=== PATIENT | female | born 1985 | race Caucasian/White ===

== ENCOUNTER 2016-09-09 19:12 | Emergency (ER) | payer SELFPAY ==
[2016-09-09 19:20] VITALS: BP 127/60; PULSE 109; RESP 20; TEMP 97.9
--- NOTE | 2016-09-09 19:35 | ED ---
General Adult HPI - General Chief complaint: Fall Stated complaint: Fall/ 34 weeks fell on stomach/Ankle Injur Time Seen by Provider: 09/09/16 19:25 Source: patient, RN notes reviewed Mode of arrival: wheelchair Limitations: no limitations - History of Present Illness Initial comments: Patient 31-year-old female who is approximately 34 weeks by ultrasound , who presents emergency room today with a chief complaint of a fall that occurred just prior to arrival. Patient does admit that she tripped in the driveway falling for onto her abdomen. She states she rolled her right ankle. She does admit to pain to the right ankle. Patient states she is also concerned about the baby. She states that she did fall onto the abdomen. Patient does admit some mild tenderness but she states this is pain that she has been having with the . She denies any vaginal bleeding or discharge. She denies any other injuries or complaints currently. Patient denies any recent fever, chills, shortness of breath, chest pain, back pain, nausea or vomiting, numbness or tingling, dysuria or hematuria, constipation or diarrhea, headaches or visual changes, or any other complaints. - Related Data Home Medications Medication Instructions Recorded Confirmed Cetirizine HCl [Zyrtec] 10 mg PO DAILY PRN 10/19/14 10/31/15 Acetaminophen-Codeine 300-30mg 1 tab PO Q4H PRN 10/27/15 10/31/15 [Tylenol #3] Ibuprofen [Motrin] 200 - 400 mg PO Q6HR PRN 10/27/15 10/27/15 Previous Rx's Medication Instructions Recorded Docusate [Colace] 100 mg PO BID #30 capsule 10/31/15 Hydrocodone/Acetaminophen [Big Bar 1 each PO Q6HR PRN #30 tab 10/31/15 5-325] Ibuprofen [Motrin] 800 mg PO TID PRN #21 tab 01/22/16 Allergies Allergy/AdvReac Type Severity Reaction Status Date / Time Penicillins Allergy Mild Rash/Hives Verified 09/09/16 19:19 Review of Systems ROS Statement: Those systems with pertinent positive or pertinent negative responses have been documented in the HPI. ROS Other: All systems not noted in ROS Statement are negative. Past Medical History Past Medical History: Chest Pain / Angina, GERD/Reflux, Thyroid Disorder Additional Past Medical History / Comment(s): migraines, occ chest pain "from stress", kidney stones, gallstones, History of Any Multi-Drug Resistant Organisms: None Reported Past Surgical History: Section, Cholecystectomy Additional Past Surgical History / Comment(s): oral surgery Past Anesthesia/Blood Transfusion Reactions: Motion Sickness, Postoperative Nausea & Vomiting (PONV) Additional Past Anesthesia/Blood Transfusion Reaction / Comment(s): post up dizziness Past Psychological History: No Psychological Hx Reported Smoking Status: Never smoker Past Alcohol Use History: None Reported Past Drug Use History: None Reported - Past Family History Mother Family Medical History: Deep Vein Thrombosis (DVT) Father Family Medical History: Hypertension General Exam - General Exam Comments Initial Comments: General: The patient is awake and alert, in no distress, and does not appear acutely ill. Eye: Pupils are equal, round and reactive to light, extra-ocular movements are intact. No nystagmus. There is normal conjunctiva bilaterally. No signs of icterus. Ears, nose, mouth and throat: There are moist mucous membranes and no oral lesions. Neck: The neck is supple, there is no tenderness or JVD. Cardiovascular: There is a regular rate and rhythm. No murmur, rub or gallop is appreciated. Respiratory: Lungs are clear to auscultation, respirations are non-labored, breath sounds are equal. No wheezes, stridor, rales, or rhonchi. Gastrointestinal: Soft on palpation, without masses or organomegaly noted. There is no rebound or guarding present. No CVA tenderness. Bowel sounds are unremarkable. Musculoskeletal: Normal appearance of the right ankle obvious deformity. Shows good range of motion with plantar and dorsiflexion. Sensations intact with pulses equal bilaterally 2+. Patient does have mild tenderness over both medial and lateral malleolus. No tenderness to the right knee or down into the metatarsals or digits of the right foot. Neurological: A&O x 3. CN II-XII intact, There are no obvious motor or sensory deficits. Coordination appears grossly intact. Speech is normal. Skin: Skin is warm and dry and no rashes or lesions are noted. Psychiatric: Cooperative, appropriate mood & affect, normal judgment. Limitations: no limitations Course Vital Signs 09/09/16 19:15 Temperature 97.9 F Pulse Rate 109 H Respiratory 20 Rate Blood Pressure 127/60 O2 Sat by Pulse 97 Oximetry Medical Decision Making - Medical Decision Making Case discussed in detail with attending physician Dr. Castillo. Patient will be sent to mother-baby to have baby checked is felt to be most important thing as patient is greater than 34 weeks . Was discussed about x-ray. Patient states she is concerned about the baby. OB nurse at bedside states that she is willing to take patient up to mother-baby for NST. Disposition Clinical Impression: Fall Disposition: HOME SELF-CARE Time of Disposition: 19:34 ( Sent to mother baby by nursing staff)
--- NOTE | 2016-09-09 20:24 | XR ---
EXAMINATION TYPE: XR ankle complete RT DATE OF EXAM: 09/09/2016 8:18 PM CLINICAL HISTORY: Right ankle pain and swelling after twisting injury. TECHNIQUE: Frontal, lateral and oblique images of the right ankle are obtained. COMPARISON: Right ankle x-ray January 22, 2016. FINDINGS: There is persistent tiny ill-defined ossific or calcific fragment from the lateral malleol us. Possible old avulsion type fracture. There is no new acute fracture/dislocation evident in the ri ght ankle. The ankle mortise appears within normal limits. Mild diffuse subcutaneous edema is presen t. Slightly more prominent soft tissue swelling over medial malleolus is seen on current study. IMPRESSION: There is no acute fracture or dislocation in the right ankle.
== END 2016-09-09 20:45 | disposition home or self-care (01) ==
LOC: EC 19:12
DX: O9A.213 Injury, poisoning and certain other consequences of external causes complicating pregnancy, third trimester (principal); M25.571 Pain in right ankle and joints of right foot; R10.819 Abdominal tenderness, unspecified site; W01.0XXA Fall on same level from slipping, tripping and stumbling without subsequent striking against object, initial encounter; Z3A.34 34 weeks gestation of pregnancy; Z88.0 Allergy status to penicillin
CPT/HCPCS: 99284

== ENCOUNTER 2016-09-09 19:35 | Outpatient (CLI) | payer OTHER | END 2016-09-09 23:02 | disposition home or self-care (01) | LOC: FBPOP 19:35 | PROVIDERS: ATTEND Obstetrics & Gynecology | DX: O99.89 Other specified diseases and conditions complicating pregnancy, childbirth and the puerperium (principal); M25.571 Pain in right ankle and joints of right foot; Z3A.34 34 weeks gestation of pregnancy | CPT/HCPCS: 59025; 99213 ==

== ENCOUNTER 2016-10-12 07:47 | Inpatient (IN) | payer OTHER ==
[2016-10-05 15:39] VITALS: BMI 42.3
--- NOTE | 2016-10-12 11:16 | P.HPOB ---
History of Present Illness H&P Date: 10/12/16 Chief Complaint: 39 and one sevenths weeks intrauterine , previous section The patient is a 31-year-old 3 para 2001 who presents the hospital at 39 and one sevenths weeks as established by last menstrual period and confirmed by 18 week ultrasound. She presents for repeat low transverse section with intraoperative bilateral tubal occlusion using Filshie clips. She has undergone 2 previous sections and agreed to the procedure as above. Should she decide a consent for tubal ligation in the office and understands the permanent nature of the procedure as well as its failure rate and risk for ectopic . Her has been otherwise uncomplicated and group B strep status is negative. Obstetrical history 3 para 2 scissors or 2 with 2 term sections. EDC of 10/18/2016 was established by last menstrual period and confirmed by an 18 week ultrasound. Laboratory workup done traits of blood type of A+ with a negative antibody screen. Rubella status is immune. All other laboratory workup was within normal limits and one-hour Glucola was normal as well. Group B strep status is negative. Gynecologic history is unremarkable with no history of any infections to include STDs. Review of Systems Review of systems is confined to history of present illness. Past Medical History Past Medical History: Asthma Additional Past Medical History / Comment(s): Hx low blood pressure, kidney stones. History of Any Multi-Drug Resistant Organisms: None Reported Past Surgical History: Section, Cholecystectomy Additional Past Surgical History / Comment(s): section X2, oral surgery. Past Anesthesia/Blood Transfusion Reactions: Motion Sickness, Postoperative Nausea & Vomiting (PONV) Additional Past Anesthesia/Blood Transfusion Reaction / Comment(s): Post up dizziness. Past Psychological History: No Psychological Hx Reported Smoking Status: Never smoker Past Alcohol Use History: None Reported Past Drug Use History: None Reported - Past Family History Mother Family Medical History: Deep Vein Thrombosis (DVT) Father Family Medical History: Hypertension Medications and Allergies Home Medications Medication Instructions Recorded Confirmed Type Cetirizine HCl [Zyrtec] 10 mg PO DAILY PRN 10/19/14 10/12/16 History Albuterol Nebulized [Ventolin 2.5 mg INHALATION Q6H PRN 10/05/16 10/12/16 History Nebulized] Pnv with Ca,No.72/Iron/FA 1 each PO DAILY 10/05/16 10/12/16 History [ Plus Tablet] Allergies Allergy/AdvReac Type Severity Reaction Status Date / Time Penicillins Allergy Mild Rash/Hives Verified 10/05/16 15:24 Exam In general, this is a well-developed, well-nourished white female in no acute distress. Her heart has a regular rhythm and rate without murmur. Her lungs are clear to auscultation bilaterally in all beltran. Her abdomen is gravid, nondistended, has normal active bowel sounds, soft, nontender, and without any palpable masses aside from the uterine fundus. Her extremities are without any cyanosis, clubbing, or edema and are nontender to palpation bilaterally. Digital cervical examination is deferred. Assessment and Plan (1) Term Status: Acute (2) Previous section Status: Acute (3) Family planning Status: Acute Plan: The patient is admitted for repeat low transverse section with intraoperative bilateral tubal occlusion using Filshie clips. The risks and complications of the procedures have been thoroughly discussed. As noted above , she understands the permanent nature of tubal ligation as well as its failure rate and risk for ectopic .
[2016-10-12] MEDS ORDERED: CITRIC ACID-SODIUM CITRATE 15 ML CUP PO ONE (11:27)
[2016-10-12] MEDS ORDERED: LACTATED RINGERS 1,000 ML IV ONE (11:27)
[2016-10-12] MEDS ORDERED: LACTATED RINGERS 1,000 ML IV SCH (11:30)
[2016-10-12 11:57] LABS: Basophils % (A) 0 %; CH 28.5; CHCM 32.9; Eosinophils # (A) 0.1 k/uL (0-0.7); Eosinophils % (A) 1 %; HDW 2.73; HGB 11.8 gm/dL (11.4-16.0); Luc # (Auto) 0.19; Luc % (Auto) 2; Lymphocytes # (A) 1.6 k/uL (1.0-4.8); Lymphocytes % (A) 15 %; MCH 28.4 pg (25.0-35.0); MCHC 32.7 g/dL (31.0-37.0); MCV 86.9 fL (80.0-100.0); Mean Platelet Volume 8.6; Monocytes # (A) 0.4 k/uL (0-1.0); Monocytes % (A) 4 %; Neutrophils # (A) 8.2 k/uL (1.3-7.7); Neutrophils % (A) 79 %; RBC 4.14 m/uL (3.80-5.40); WBC 10.5 k/uL (3.8-10.6); WBC (Perox) 10.94
[2016-10-12] MEDS ORDERED: MORPHINE SULFATE (PF) 0.3 MG/0.3 ML SYR ONE (12:16)
[2016-10-12] MEDS ORDERED: OXYTOCIN 10 UNIT/ML 1 ML VIAL IM ONE (12:16)
[2016-10-12] MEDS ORDERED: LACTATED RINGERS 1,000 ML BAG IV ONE (12:16)
[2016-10-12] MEDS ORDERED: KETOROLAC 30 MG/ML 1 ML VIAL ONE (12:16)
[2016-10-12] MEDS ORDERED: diphenhydrAMINE 50 MG/ML 1 ML VIAL ONE (12:16)
[2016-10-12] MEDS ORDERED: ONDANSETRON 4 MG/2 ML VIAL ONE (12:16)
[2016-10-12] MEDS ORDERED: NALBUPHINE 10 MG/ML AMPUL ONE (12:16)
[2016-10-12] MEDS ORDERED: ePHEDrine 50 MG/ML 1 ML AMP ONE (12:16)
[2016-10-12] MEDS ORDERED: ceFAZolin 1,000 MG VIAL ONE (12:16)
[2016-10-12] MEDS ORDERED: MORPHINE SULFATE 4 MG/ML SYRINGE IVP PRN (12:37)
[2016-10-12] MEDS ORDERED: NALOXONE 0.4 MG/ML 1 ML VIAL IV PRN ×2 (12:37→13:04)
[2016-10-12] MEDS ORDERED: diphenhydrAMINE 50 MG/ML 1 ML VIAL IVP PRN ×3 (12:37→13:04)
[2016-10-12] MEDS ORDERED: ONDANSETRON 4 MG/2 ML VIAL IVP PRN ×2 (12:37→13:04)
[2016-10-12] MEDS ORDERED: ZOLPIDEM 5 MG TAB PO PRN (13:04)
[2016-10-12] MEDS ORDERED: METOCLOPRAMIDE 5 MG/ML 2 ML VIAL IVP PRN (13:04)
[2016-10-12] MEDS ORDERED: SIMETHICONE 80 MG CHEWABLE PO PRN (13:04)
[2016-10-12] MEDS ORDERED: LANOLIN CREAM 5 GM TUBE TOPICAL PRN (13:04)
[2016-10-12] MEDS ORDERED: diphenhydrAMINE 50 MG CAP PO PRN (13:04)
[2016-10-12] MEDS ORDERED: Acetaminophen-Codeine 300-30mg TAB PO PRN (13:04)
[2016-10-12] MEDS ORDERED: diphenhydrAMINE 25 MG CAP PO PRN (13:04)
--- NOTE | 2016-10-12 13:13 | P.OP ---
Date of Procedure: 10/12/16 Preoperative Diagnosis: #1. 39+ weeks intrauterine #2. Previous section times to # 3. Undesired fertility Postoperative Diagnosis: Same Procedure(s) Performed: #1. Repeat low transverse section #2. Intraoperative bilateral tubal occlusion with Filshie clips Anesthesia: spinal Surgeon: Ariel Ricardo Umbrella Supervisor #1: Nessa Santana Estimated Blood Loss (ml): 300 IV fluids (ml): 800 Urine output (ml): 200 Pathology: other (Placenta) Condition: stable Disposition: floor Operative Findings: The patient was taken the operating room where she was delivered of a viable 7 lbs. 3 oz. baby boy with Apgars of 8 at 1 minute and 9 at 5 minutes. The placenta was delivered manually, intact, and grossly normal with a grossly normal three-vessel cord. The uterus, tubes, and ovaries were entirely normal to inspection. A Filshie clip was placed across the entire thickness of the isthmic portion of the tube approximately 2-3 cm from the cornu on each side. Description of Procedure: The patient was prepped and draped in usual fashion after spinal anesthesia was administered by the anesthesiologist. A Pfannenstiel incision was made through pre-existing scar and extended into the abdominal cavity without difficulty. The bladder peritoneum was distal to the intended site of incision and was left intact. A 2 cm incision was made in the transverse plane of the lower uterine segment to enter the uterus at which time clear fluid was noted. Incision was extended in each direction using the bandage scissors. The head was delivered up and through the incision where the nose and mouth were thoroughly suctioned. Remainder of the infant was delivered onto the field where the cord was doubly clamped, cut, and the passed for resuscitative measures with weight and Apgars as noted above. The placenta was delivered manually and intact as noted above. The uterus was exteriorized and the interior cavity of the uterus swept of any remaining placental or membranous fragments. The margins of the incision were grasped with Spear Clamps and the incision closed in a single running locking stitch of 0 chromic catgut from margin to margin. Hemostasis appeared to be excellent. The posterior cul-de-sac was suctioned using a guard. A Filshie clip was placed across each fallopian tube approximately 2-3 cm from the cornu of the uterus and firmly affixed across the entire thickness. This was carried out bilaterally. The uterus was replaced within the abdominal cavity and the gutters swept of any remaining blood, fluid , or clot. The incision was reexamined and found to be hemostatic. The parietal peritoneum was loosely reapproximated and the muscles additionally loosely reapproximated using a wide loose [id number] stitch of 0 chromic catgut. The layer of muscles was examined and found to be hemostatic. The fascia was closed with 2 running stitches of 0 Vicryl proceeding from the lateral margins to the midpoint. The subcutaneous tissues were irrigated, made hemostatic with the Bovie, and reapproximated with running stitch of 30 plain catgut. The skin was reapproximated with a running subcuticular stitch of 4-0 Vicryl from margin to margin followed by half-inch Steri-Strips placed with Mastisol. Estimated blood loss for the entire case was approximately 300 mL. There were no complications. All sponge, instrument, and needle counts were correct. Both mother and are resting comfortably in recovery.
[2016-10-12] MEDS ORDERED: OXYTOCIN 30 UNITS/500 ML NS 30 UNIT in SALINE 1 500ML.BAG IV SCH (13:15)
[2016-10-12] MEDS: KETOROLAC 30 MG/ML 1 ML VIAL IVP PRN (19:21)
[2016-10-12] MEDS: ALBUTEROL NEBULIZED 2.5 MG/3 ML INHALATION PRN (21:13)
[2016-10-13] MEDS ORDERED: KETOROLAC 30 MG/ML 1 ML VIAL ONE (03:00)
[2016-10-13 06:11] LABS: Basophils % (A) 0 %; CH 27.8; CHCM 31.9; Eosinophils # (A) 0.1 k/uL (0-0.7); Eosinophils % (A) 1 %; HCT 33.9 % (34.0-46.0); HDW 2.65; HGB 10.7 gm/dL (11.4-16.0); Hypochromasia Slight; Luc # (Auto) 0.17; Luc % (Auto) 2; Lymphocytes # (A) 1.7 k/uL (1.0-4.8); Lymphocytes % (A) 17 %; MCH 27.6 pg (25.0-35.0); MCHC 31.5 g/dL (31.0-37.0); MCV 87.5 fL (80.0-100.0); Mean Platelet Volume 7.6; Monocytes # (A) 0.3 k/uL (0-1.0); Monocytes % (A) 3 %; Neutrophils % (A) 78 %; RBC 3.88 m/uL (3.80-5.40); RDW 13.9 % (11.5-15.5); WBC 10.4 k/uL (3.8-10.6); WBC (Perox) 10.92
[2016-10-13] MEDS: ALBUTEROL NEBULIZED 2.5 MG/3 ML INHALATION PRN ×2 (08:16→19:59)
[2016-10-13] MEDS: LACTATED RINGERS 1,000 ML IV SCH (08:17)
[2016-10-13] MEDS: SENNOSIDES-DOCUSATE SODIUM 1 EACH TAB PO SCH ×3 (08:18→21:29)
[2016-10-13] MEDS: KETOROLAC 30 MG/ML 1 ML VIAL IVP PRN (09:07)
--- NOTE | 2016-10-13 10:38 | P.PNOBGPC ---
Subjective - Subjective Principal diagnosis: Postop day 1 Interval history: Complaining of itching Patient reports: Reports appetite normal, Reports voiding normally, Reports pain well controlled, Reports ambulating normally, Denies nauseated : doing well Objective - Vital Signs Latest vital signs: Vital Signs Temp Pulse Pulse Resp BP Pulse Ox 10/13/16 08:26 86 10/13/16 08:20 90 97 10/13/16 08:00 97.4 F L 81 16 96/59 98 10/13/16 06:43 100 10/13/16 05:00 97.8 F 71 20 109/66 99 10/13/16 03:00 98.1 F 67 20 126/64 100 10/13/16 01:00 98 10/13/16 00:00 98.8 F 72 16 119/70 98 10/12/16 23:00 18 99 10/12/16 21:27 80 10/12/16 21:13 80 10/12/16 21:00 18 98 10/12/16 20:00 98.4 F 80 18 128/66 99 10/12/16 19:00 80 18 106/66 96 10/12/16 17:00 97.2 F L 86 18 99/68 98 10/12/16 15:37 97 10/12/16 15:11 97.2 F L 85 18 110/65 97 10/12/16 14:41 77 16 113/73 97 10/12/16 14:10 76 18 110/67 96 10/12/16 13:56 92 16 110/67 98 10/12/16 13:41 79 16 114/83 97 10/12/16 13:36 98 10/12/16 13:26 80 16 105/59 98 10/12/16 13:11 96.7 F L 72 16 109/59 97 10/12/16 12:37 96.7 F L 81 16 115/62 97 10/12/16 11:09 97.0 F L 97 18 108/69 97 Intake and Output 10/12/16 10/13/16 10/13/16 22:59 06:59 14:59 Intake Total 500 Output Total 500 300 Balance 0 -300 Intake: IV 500 Lactated Ringers 1,000 ml 500 @ 125 mls/hr IV .Q8H [facility] Rx#:[id number] Output: Urine 500 300 Uretheral (Carreno) 300 Other: # Voids 1 # Bowel Movements 0 - Exam Extremities: Present: normal Abdomen: Present: normal appearance, soft, distention. Absent: tenderness Incision: Present: normal, dry, intact. Absent: erythematous, edematous Uterus: Present: normal, firm - Labs Labs: Abnormal Lab Results - Last 24 Hours (Table) 10/12/16 10/13/16 Range/Units 11:25 05:56 Hgb 10.7 L (11.4-16.0) gm/dL Hct 33.9 L (34.0-46.0) % Neutrophils # 8.2 H 8.0 H (1.3-7.7) k/uL Assessment and Plan (1) Family planning Current Visit: Yes Status: Acute Code(s): Z30.09 - ENCOUNTER FOR OTH GENERAL CNSL AND ADVICE ON CONTRACEPTION SNOMED Code(s): 17375595 (2) Previous section Current Visit: Yes Status: Acute Code(s): Z98.89 - OTHER SPECIFIED POSTPROCEDURAL STATES * DO NOT USE * SNOMED Code(s): 896586002 (3) S/P section Narrative/Plan: Postop day 1 status post repeat low transverse section and bilateral tubal ligation. She is recovering well. Routine care. Current Visit: Yes Status: Acute Code(s): Z98.89 - OTHER SPECIFIED POSTPROCEDURAL STATES * DO NOT USE * SNOMED Code(s): 524088321 (4) Term Current Visit: Yes Status: Acute Code(s): Z34.80 - ENCOUNTER FOR SUPRVSN OF NORMAL , UNSP TRIMESTER SNOMED Code(s): 41338536
[2016-10-13] MEDS: Acetaminophen-Codeine 300-30mg TAB PO PRN ×2 (12:29→18:40)
[2016-10-13] MEDS: IBUPROFEN 600 MG TAB PO PRN ×2 (15:32→21:26)
--- NOTE | 2016-10-13 18:19 | P.PN ---
Progress Note - Text Date:10/13 Time: Patient is status post . Patient seen this morning with VAS score of 2. c/o of pruritus, c/o nausea/vomiting, comfortable and doing well.
[2016-10-14] MEDS: ACETAMINOPHEN TAB 325 MG TAB PO PRN ×2 (00:31→07:22)
[2016-10-14] MEDS: IBUPROFEN 600 MG TAB PO PRN ×2 (03:56→10:40)
[2016-10-14] MEDS: SENNOSIDES-DOCUSATE SODIUM 1 EACH TAB PO SCH (07:23)
[2016-10-14 08:01] VITALS: BP 135/90; RESP 16; TEMP 97.4
[2016-10-14] MEDS: ALBUTEROL NEBULIZED 2.5 MG/3 ML INHALATION PRN (08:08)
[2016-10-14 08:17] VITALS: PULSE 84
--- NOTE | 2016-10-14 11:43 | P.DS ---
Providers Date of admission: 10/12/16 09:56 Expected date of discharge: 10/14/16 Attending physician: Ariel Ricardo Primary care physician: Valente Jacinto - Discharge Diagnosis(es) (1) Family planning Current Visit: Yes Status: Acute (2) Previous section Current Visit: Yes Status: Acute (3) S/P section Current Visit: Yes Status: Acute (4) Term Current Visit: Yes Status: Acute Hospital Course: This is a 3 now para 3 woman who is admitted at 39 weeks gestation for planned repeat low transverse section and bilateral tubal ligation. She went to the operating room on 10/13/2015 and underwent an uncomplicated repeat low transverse section with bilateral tubal ligation. Please see the operative report for details. The patient's postoperative course was entirely unremarkable. By postoperative day #1 she was ambulating and voiding without difficulty and tolerating a general diet. By postoperative day #2 her incision appeared to be well healing and she was having minimal lochia. Her pain was well-controlled with oral pain medications. The was doing well. She was therefore discharged home with routine instructions for postoperative care and follow-up. Procedures: Repeat low transverse section and bilateral tubal ligation Patient Condition at Discharge: Good Plan - Discharge Summary New Discharge Prescriptions: Acetaminophen-Codeine 300-30mg [Tylenol w/codeine #3] 1 each PO Q4HR PRN #20 tab PRN Reason: Mild Pain Ibuprofen [Motrin] 600 mg PO Q6HR PRN #30 tab PRN Reason: Mild Pain Or Fever >= 100.5 Discharge Medication List Cetirizine HCl [Zyrtec] 10 mg PO DAILY PRN 10/19/14 [History] Albuterol Nebulized [Ventolin Nebulized] 2.5 mg INHALATION Q6H PRN 10/05/16 [ History] Pnv with Ca,No.72/Iron/FA [ Plus Tablet] 1 each PO DAILY 10/05/16 [ History] Acetaminophen-Codeine 300-30mg [Tylenol w/codeine #3] 1 each PO Q4HR PRN #20 tab 10/14/16 [Rx] Ibuprofen [Motrin] 600 mg PO Q6HR PRN #30 tab 10/14/16 [Rx] Follow up Appointment(s)/Referral(s): Ariel Ricardo MD [STAFF PHYSICIAN] - 2 Weeks Activity/Diet/Wound Care/Special Instructions: Follow-up in 2 weeks after surgery in the office. Call the office with any concerning signs or symptoms including fever greater than 101, severe abdominal pain, heavy vaginal bleeding, signs of wound infection, increased swelling or redness of the lower extremities, signs of depression. No driving for 2 weeks after surgery. No heavy lifting or vigorous activity until reevaluated in the office. No intercourse for 6 weeks after delivery. Discharge Disposition: HOME SELF-CARE
[2016-10-14] MEDS: Acetaminophen-Codeine 300-30mg TAB PO PRN (13:06)
== END 2016-10-14 14:30 | disposition home or self-care (01) | DRG 766 ==
LOC: 4FBP 09:56
PROVIDERS: ADMIT Obstetrics & Gynecology; ATTEND Obstetrics & Gynecology
PROC: 0UL70CZ Occlusion of Bilateral Fallopian Tubes with Extraluminal Device, Open Approach (ICD-10-PCS; principal; 2016-10-12 12:26)
PROC: 10D00Z1 Extraction of Products of Conception, Low, Open Approach (ICD-10-PCS; principal; 2016-10-12 12:26)
DX: O34.211 Maternal care for low transverse scar from previous cesarean delivery (principal); J45.909 Unspecified asthma, uncomplicated; O99.52 Diseases of the respiratory system complicating childbirth; Z37.0 Single live birth; Z3A.39 39 weeks gestation of pregnancy; Z79.899 Other long term (current) drug therapy; Z88.0 Allergy status to penicillin; L29.9 Pruritus, unspecified; Z30.2 Encounter for sterilization
CPT/HCPCS: 85025; 86850; 86900; 86901; 88307; 94640; 94760

== ENCOUNTER → 2017-02-08 | Outpatient (CLI) | payer OTHER ==
--- NOTE | 2017-02-08 17:52 | XR ---
EXAMINATION TYPE: XR lumbosacral spine min 4V DATE OF EXAM: 02/08/2017 COMPARISON: NONE HISTORY: Back pain TECHNIQUE: 5 views FINDINGS: Vertebra have normal alignment. Disc spaces are fairly normal. Posterior elements are intac t. Sacroiliac joints are normal. IMPRESSION: Negative lumbar spine exam.
== END | disposition home or self-care (01) ==
LOC: RADXRMAIN 17:03
PROVIDERS: ATTEND Pediatrics
DX: M54.5 Low back pain (principal)
CPT/HCPCS: 72110

== ENCOUNTER 2019-05-23 01:50 | Emergency (ER) | payer BC, OTHER ==
[2019-05-23 01:59] VITALS: TEMP 97.3
--- NOTE | 2019-05-23 02:39 | XR ---
EXAMINATION TYPE: XR femur LT DATE OF EXAM: 05/23/2019 COMPARISON: NONE HISTORY: Femur pain TECHNIQUE: 5 views FINDINGS: I see no fracture nor dislocation. Hip joint and knee joint appear intact. 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 There is no sign of knee joint effusion. Acetabulum appears normal. IMPRESSION: Negative left femur exam.
--- NOTE | 2019-05-23 02:41 | ED ---
Lower Extremity Injury HPI - General Chief Complaint: Extremity Injury, Lower Stated Complaint: Fall, L Leg injury Time Seen by Provider: 05/23/19 01:53 Source: patient Mode of arrival: wheelchair Limitations: no limitations - History of Present Illness Initial Comments: This patient is a 34-year-old woman who presents to be evaluated for left leg injury. The patient states that she had been at work and then she had a slip, followed by hyperextending her left knee. She felt a pop behind her left thigh. She states that since that time if she fully extends her left leg there is a burning pain. Patient states she was able to bear weight. She denies weakness or numbness of the leg. She denies pain within the knee joint or within the hip. MD Complaint: leg injury Onset/Timin -: hour(s) Type of Injury: hyperextension Place: work Severity: severe Improves With: NSAID, other (Tylenol 3) Worsens With: movement Context: other Associated Symptoms: snap/pop sensation - Related Data Home Medications Medication Instructions Recorded Confirmed Cetirizine HCl [Zyrtec] 10 mg PO DAILY PRN 10/19/14 10/12/16 Albuterol Nebulized [Ventolin 2.5 mg INHALATION Q6H PRN 10/05/16 10/12/16 Nebulized] Pnv,Calcium 72/Iron/Folic Acid 1 each PO DAILY 10/05/16 10/12/16 [ Plus Tablet] Previous Rx's Medication Instructions Recorded Acetaminophen-Codeine 300-30mg 1 each PO Q4HR PRN #20 tab 10/14/16 [Tylenol w/codeine #3] Ibuprofen [Motrin] 600 mg PO Q6HR PRN #30 tab 10/14/16 Cyclobenzaprine [Flexeril] 10 mg PO TID #18 tab 05/23/19 Ibuprofen [Motrin] 600 mg PO Q8HR PRN #20 tab 05/23/19 Allergies Allergy/AdvReac Type Severity Reaction Status Date / Time Penicillins Allergy Mild Rash/Hives Verified 10/05/16 15:24 morphine Allergy Itching Verified 05/23/19 01:59 Review of Systems ROS Statement: Those systems with pertinent positive or pertinent negative responses have been documented in the HPI. ROS Other: All systems not noted in ROS Statement are negative. Constitutional: Denies: fever, chills, weakness Musculoskeletal: Reports: as per HPI, myalgia. Denies: back pain, arthralgia Neurological: Denies: weakness, numbness, paresthesias Past Medical History Past Medical History: Asthma Additional Past Medical History / Comment(s): Hx low blood pressure, kidney stones. History of Any Multi-Drug Resistant Organisms: None Reported Past Surgical History: Section, Cholecystectomy Additional Past Surgical History / Comment(s): section X2, oral surgery. Past Anesthesia/Blood Transfusion Reactions: Motion Sickness, Postoperative Nausea & Vomiting (PONV) Additional Past Anesthesia/Blood Transfusion Reaction / Comment(s): Post up dizziness. Past Psychological History: No Psychological Hx Reported Smoking Status: Never smoker Past Alcohol Use History: None Reported Past Drug Use History: None Reported - Past Family History Mother Family Medical History: Deep Vein Thrombosis (DVT) Father Family Medical History: Hypertension General Exam Limitations: no limitations General appearance: alert, in no apparent distress Head exam: Present: atraumatic, normocephalic Cardiovascular Exam: Present: other (Symmetric and normal strength pedal pulses. Capillary refill to the left foot is normal.) Extremities exam: Present: normal inspection, full ROM (Bypass of exam. Patient has pain in the hamstring with full extension.), tenderness (Tenderness to palpation over the left hamstring area. There is no bony tenderness or deformity.), normal capillary refill. Absent: calf tenderness Back exam: Present: normal inspection. Absent: vertebral tenderness Neurological exam: Present: alert. Absent: motor sensory deficit Skin exam: Present: warm, dry, intact, normal color. Absent: rash Course Vital Signs 05/23/19 01:55 Temperature 97.3 F L Pulse Rate 82 Respiratory 18 Rate Blood Pressure 110/71 O2 Sat by Pulse 99 Oximetry Disposition Clinical Impression: Hamstring injury Disposition: HOME SELF-CARE Condition: Good Instructions (If sedation given, give patient instructions): Muscle Strain (ED) Prescriptions: Cyclobenzaprine [Flexeril] 10 mg PO TID #18 tab Ibuprofen [Motrin] 600 mg PO Q8HR PRN #20 tab PRN Reason: Pain Is patient prescribed a controlled substance at d/c from ED?: No Referrals: Valente Jacinto MD [Primary Care Provider] - 1-2 days
[2019-05-23 05:20] VITALS: BP 115/66; PULSE 81; RESP 16
== END 2019-05-23 05:22 | disposition home or self-care (01) ==
LOC: EC 01:50
DX: S76.302A Unspecified injury of muscle, fascia and tendon of the posterior muscle group at thigh level, left thigh, initial encounter (principal); J45.909 Unspecified asthma, uncomplicated; Z88.0 Allergy status to penicillin; Z88.5 Allergy status to narcotic agent; X50.9XXA Other and unspecified overexertion or strenuous movements or postures, initial encounter
CPT/HCPCS: 99283

== ENCOUNTER 2024-01-15 22:40 | Emergency (ER) | payer BC ==
[2024-01-15 22:44] VITALS: RESP 18
[2024-01-15] MEDS: HYDROcodone/APAP 7.5-325MG 1 EACH TAB PO ONE (23:21)
[2024-01-15] MEDS: ONDANSETRON ODT 4 MG TAB PO STA (23:21)
--- NOTE | 2024-01-15 23:50 | ED ---
ENT HPI - General Chief complaint: Dental/Oral Stated complaint: Tooth Ache Time Seen by Provider: 01/15/24 22:50 Source: patient Mode of arrival: ambulatory Limitations: no limitations - History of Present Illness Initial comments: 38-year-old female presenting with chief complaint of dental pain. Patient had a tooth extracted about a week ago. She states that she has been taking Motrin 800 and Tylenol together for several days to try to help with pain but this has not been providing much relief. She has also been taking Tylenol 3 at times which also has not been providing much relief. She states that now she feels nauseous and she has a burning sensation in her stomach. No fevers. Patient is on clindamycin currently with no swelling or trismus. No drooling. No difficulty breathing or swallowing. No bleeding. - Related Data Home Medications Medication Instructions Recorded Confirmed Cetirizine HCl [Zyrtec] 10 mg PO DAILY PRN 10/19/14 10/12/16 Albuterol Nebulized [Ventolin 2.5 mg INHALATION Q6H PRN 10/05/16 10/12/16 Nebulized] Pnv,Calcium 72/Iron/Folic Acid 1 each PO DAILY 10/05/16 10/12/16 [ Plus Tablet] Previous Rx's Medication Instructions Recorded Acetaminophen-Codeine 300-30mg 1 each PO Q4HR PRN #20 tab 10/14/16 [Tylenol w/codeine #3] Ibuprofen [Motrin] 600 mg PO Q6HR PRN #30 tab 10/14/16 Cyclobenzaprine [Flexeril] 10 mg PO TID #18 tab 05/23/19 Ibuprofen [Motrin] 600 mg PO Q8HR PRN #20 tab 05/23/19 HYDROcodone/APAP 7.5-325MG [Withee 1 tab PO Q6HR PRN 3 Days #12 tab 01/15/24 7.5-325] Ondansetron Odt [Zofran Odt] 4 mg PO Q8HR PRN #20 tab 01/15/24 Allergies Allergy/AdvReac Type Severity Reaction Status Date / Time Penicillins Allergy Mild Rash/Hives Verified 01/15/24 22:44 morphine Allergy Itching Verified 01/15/24 22:44 Review of Systems ROS Statement: Those systems with pertinent positive or pertinent negative responses have been documented in the HPI. ROS Other: All systems not noted in ROS Statement are negative. Past Medical History Past Medical History: Asthma Additional Past Medical History / Comment(s): Hx low blood pressure, kidney stones. History of Any Multi-Drug Resistant Organisms: None Reported Past Surgical History: Section, Cholecystectomy Additional Past Surgical History / Comment(s): section X2, oral surgery. Past Anesthesia/Blood Transfusion Reactions: Motion Sickness, Postoperative Nausea & Vomiting (PONV) Additional Past Anesthesia/Blood Transfusion Reaction / Comment(s): Post up dizziness. Past Psychological History: No Psychological Hx Reported Past Alcohol Use History: None Reported Past Drug Use History: None Reported - Past Family History Mother Family Medical History: Deep Vein Thrombosis (DVT) Father Family Medical History: Hypertension General Exam Limitations: no limitations General appearance: alert, in no apparent distress Head exam: Present: atraumatic, normocephalic Eye exam: Present: normal appearance, EOMI Expanded Teeth exam: Present: other (Extraction site is seen, no swelling or other changes to suggest abscess) Throat exam: normal inspection Neck exam: Present: normal inspection. Absent: meningismus Respiratory exam: Absent: respiratory distress Cardiovascular Exam: Present: regular rate Neurological exam: Present: alert, oriented X3 Psychiatric exam: Present: normal affect, normal mood Skin exam: Present: normal color Course Vital Signs 01/15/24 01/16/24 22:41 00:05 Temperature 98.8 F 98.6 F Pulse Rate 88 81 Respiratory 18 18 Rate Blood Pressure 110/76 112/74 O2 Sat by Pulse 98 98 Oximetry Medical Decision Making - Medical Decision Making Was pt. sent in by a medical professional or institution (, PA, SAND BLASTER, urgent care, hospital, or senior care...) When possible be specific @ -No Did you speak to anyone other than the patient for history (EMS, parent, family, police, friend...)? What history was obtained from this source @ -No Did you review nursing and triage notes (agree or disagree)? Why? @ -I reviewed and agree with nursing and triage notes Were old charts reviewed (outside hosp., previous admission, EMS record, old EKG, old radiological studies, urgent care reports/EKG's, senior care records)? Report findings @ -No old charts were reviewed Differential Diagnosis (chest pain, altered mental status, abdominal pain women, abdominal pain men, vaginal bleeding, weakness, fever, dyspnea, syncope, headache, dizziness, GI bleed, back pain, seizure, CVA, palpatations, mental health, musculoskeletal)? @ -Differential includes toothache, dental abscess, Pelon's angina, this is not an all-inclusive list EKG interpreted by me (3pts min.). @ -As above X-rays interpreted by me (1pt min.). @ -None done CT interpreted by me (1pt min.). @ -None done U/S interpreted by me (1pt. min.). @ -None done What testing was considered but not performed or refused? (CT, X-rays, U/S, labs)? Why? @ -None What meds were considered but not given or refused? Why? @ -None Did you discuss the management of the patient with other professionals (professionals i.e. , PA, SAND BLASTER, lab, RT, psych nurse, social worker assistant, aluminum hydroxide process operator, teacher, corporate banking officer, case management coordinator)? Give summary @ -No Was smoking cessation discussed for >3mins.? @ -No Was critical care preformed (if so, how long)? @ -No Were there social determinants of health that impacted care today? How? (Homelessness, low income, unemployed, alcoholism, drug addiction, transportation, low edu. Level, literacy, decrease access to med. care, prison, rehab)? @ -No Was there de-escalation of care discussed even if they declined (Discuss DNR or withdrawal of care, Hospice)? DNR status @ -No What co-morbidities impacted this encounter? (DM, HTN, Smoking, COPD, CAD, Cancer, CVA, ARF, Chemo, Hep., AIDS, mental health diagnosis, sleep apnea, morbid obesity)? @ -None Was patient admitted / discharged? Hospital course, mention meds given and route, prescriptions, significant lab abnormalities, going to OR and other pertinent info. @ -38-year-old female presenting with chief complaint of dental pain. She had a tooth extracted 1 week ago. She has been taking ibuprofen and Tylenol with occasional Tylenol 3. She complains of a burning pain in her epigastric region as well as nausea. No vomiting. Provided with Zofran and Withee. She is resting comfortably upon reassessment. I explained to her that the ibuprofen is likely causing her burning pain as it is harsh on the GI lining, advised her to take a break from ibuprofen. Do not combine Withee with Tylenol or Tylenol 3. Follow-up with dentist. Discharged home. Follow-up with PCP. Report back to ER with any new or worsening symptoms. Discussed return parameters and answered all questions. Patient conveyed verbal understanding and agreed to the plan. I discussed this case in detail with my attending Dr. Goodwin Undiagnosed new problem with uncertain prognosis? @ -No Drug Therapy requiring intensive monitoring for toxicity (Heparin, Nitro, Insulin, Cardizem)? @ -No Were any procedures done? @ -No Diagnosis/symptom? @ -Toothache Acute, or Chronic, or Acute on Chronic? @ -Acute Uncomplicated (without systemic symptoms) or Complicated (systemic symptoms)? @ -Uncomplicated Side effects of treatment? @ -No Exacerbation, Progression, or Severe Exacerbation? @ -No Poses a threat to life or bodily function? How? (Chest pain, [place], [place], pneumonia, PE, COPD, DKA, ARF, appy, cholecystitis, CVA, Diverticulitis, Homicidal, Suicidal, threat to staff... and all critical care pts) @ -No Disposition Clinical Impression: Pain, dental Disposition: HOME SELF-CARE Condition: Good Instructions (If sedation given, give patient instructions): Toothache (ED) Additional Instructions: Follow up with your dentist. Report back to ER with any new or worsening symptoms Prescriptions: HYDROcodone/APAP 7.5-325MG [[place] 7.5-325] 1 tab PO Q6HR PRN 3 Days #12 tab PRN Reason: Pain Ondansetron Odt [Zofran Odt] 4 mg PO Q8HR PRN #20 tab PRN Reason: Nausea Is patient prescribed a controlled substance at d/c from ED?: Yes When asked, does pt state using other controlled substances?: No If prescribed controlled substance>3 days was MAPS reviewed?: Prescribed <3 Days If opioid is for acute pain is fill amount 7 days or less?: Yes Referrals: Valente Jacinto MD [Primary Care Provider] - 1-2 days Time of Disposition: 23:47
[2024-01-16] MEDS: ONDANSETRON 4 MG ODT STARTER PACK 2 TAB BTL PO STA (00:01)
[2024-01-16 00:06] VITALS: BP 112/74; PULSE 81; TEMP 98.6
== END 2024-01-16 00:08 | disposition home or self-care (01) ==
LOC: EC 22:40
DX: K08.89 Other specified disorders of teeth and supporting structures (principal); Z88.0 Allergy status to penicillin; Z88.5 Allergy status to narcotic agent
CPT/HCPCS: 99283; 99282; S0119